=== PATIENT | male | born 1995 | race Caucasian/White ===

== ENCOUNTER 2018-03-15 09:12 | Inpatient (IN) | payer MEDICAID ==
[~2018-03-15] VITALS: Ht 167.6 cm; Wt 71.2 kg
[2018-03-15 09:19] VITALS: BP 125/73
--- NOTE | 2018-03-15 09:23 | NUR ---
PT AMBULATES TO BED 9
--- NOTE | 2018-03-15 09:30 | NUR ---
PT COMES TO ED C/O ABD PAIN RADIATING FROM LOWER Q TO UPPER Q. DENIES N/V/D. PT WITH H/O COLITIS. ABD IS SOFT AND NONTENDER, NO DISTENTION. NAD NOTED/STATED OTHERWISE
--- NOTE | 2018-03-15 09:41 | NUR ---
Dr. Gabriel evaluating patient at bedside.
[2018-03-15] MEDS ORDERED: DICYCLOMINE HCL LIQUID 20 MG, ALUMINUM HYD/MAG/SIMETHICONE 30 ML, LIDOCAINE VISCOUS 2% ... PO ONE ×3 (10:00)
[2018-03-15] MEDS ORDERED: ONDANSETRON 4 MG ODT PO ONE (10:00)
[2018-03-15 10:16] LABS: BASOPHILS # (AUTO) 0.1 K/uL (0.00-0.22); BASOPHILS % (AUTO) 0.3 % (0.0-2.0); HEMATOCRIT 41.5 % (36-52); HEMOGLOBIN 13.9 g/dL (12.0-18.0); LYMPHOCYTES # (AUTO) 1.3 K/uL (2.0-11.5); LYMPHOCYTES % (AUTO) 7.9 % (20.5-51.1); MEAN CORPUSCULAR HEMOGLOBIN 31 pg (27-31); MEAN CORPUSCULAR HGB CONC 34 g/dL (33-37); MEAN CORPUSCULAR VOLUME 91.7 fL (80-94); MONOCYTES # (AUTO) 0.7 K/uL (0.8-1.0); MONOCYTES % (AUTO) 4.1 % (1.7-9.3); NEUTROPHILS # (AUTO) 14.2 K/uL (1.8-7.7); NEUTROPHILS % (AUTO) 87.7 % (42.2-75.2); PLATELET COUNT (AUTO) 241 K/uL (140-450); RED BLOOD CELL COUNT(AUTO) 4.53 MIL/uL (4.20-6.10); WHITE BLOOD COUNT (AUTO) 16.2 K/uL (4.8-10.8)
[2018-03-15 10:32] LABS: CARBON DIOXIDE 28.2 mmol/L (21-32); POTASSIUM 4.2 mmol/L (3.5-5.1)
[2018-03-15 10:36] LABS: TOTAL BILIRUBIN 0.6 mg/dL (0.0-1.0)
[2018-03-15] MEDS ORDERED: POTASSIUM CHL 20 MEQ/D5-1/2NS 1,000 ML IV ONE (11:50)
[2018-03-15] MEDS ORDERED: PIPERACILLIN/TAZOBACTAM 3.375 GM in DEXTROSE 5% 50 ML IV ONE (11:50)
[2018-03-15] MEDS ORDERED: NACL 0.9% 1,000 ML IV SCH (11:56)
[2018-03-15] MEDS ORDERED: PIPERACILLIN/TAZOBACTAM 3.375 GM VIAL IV ONE (11:56)
[2018-03-15] MEDS ORDERED: ONDANSETRON 4 MG/2 ML VIAL IM/IVP PRN (12:00)
[2018-03-15] MEDS ORDERED: ACETAMINOPHEN 325 MG TAB PO PRN (12:00)
[2018-03-15] MEDS ORDERED: DOCUSATE SODIUM 100 MG GELCAP PO PRN (12:00)
--- NOTE | 2018-03-15 12:10 | NUR ---
Patient appears to be resting comfortably in bed reports pain level decreased to 2/10. Vital Signs within normal limits. Respirations even and unlabored.
--- NOTE | 2018-03-15 12:40 | NUR ---
PATIENT BROUGHT TO UNIT VIA GURNEY FROM THE ER. REPORT RECEIVED AT BEDSIDE FROM LEIGHANN RHODES. PATIENT IS AMBULATORY. HAS NO SIGNS AND SYMPTOMS OF ACUTE DISTRESS NOTED AT THIS TIME. CURRENTLY EXPERIENCING SOME PAIN IN THE RIGHT LOWER QUADRANT. HAS IV TO THE RIGHT AC 20G, ON KCL AT THIS TIME. ORIENTED PATIENT TO THE ROOM AND EXPLAINED THE CALL LIGHT. PATIENT VERBALIZED UNDERSTANDING. BED IN LOWEST POSITION, SIDE RAILS UP X2, CALL LIGHT WITHIN REACH. WILL CONTINUE TO MONITOR.
[2018-03-15 12:43] LABS: PROTHROMBIN TIME 10.3 secs (10.8-13.4)
--- NOTE | 2018-03-15 12:43 | NUR ---
Patient will be admitted to care of [facility]. Admited to [facility]. Will go to room 106A. Belongings list completed. Report to CHAMP LAWTON.
[2018-03-15] MEDS ORDERED: KETOROLAC 30 MG/ML VIAL IM PRN (13:30)
[2018-03-15] MEDS ORDERED: KETOROLAC 30 MG/ML VIAL IVP PRN (14:00)
[2018-03-15 14:34] LABS: CHOL/HDL RATIO 2.3 (1-4.5); FREE T4 (FREE THYROXINE) 0.95 ng/dL (0.76-1.46); MAGNESIUM 2.1 mg/dL (1.8-2.4); PHOSPHORUS 2.6 mg/dL (2.5-4.9); THYROID STIMULATING HORMONE 0.63 uIU/mL (0.34-3.74)
[2018-03-15 14:34] LABS: BARBITURATE, URINE NEG. ng/ml (NEG <=200); BENZODIAZEPINE, URINE NEG. ng/mL (NEG <=200); CANNABINOID, URINE POS. ng/mL (NEG <=50); COCAINE, URINE NEG. ng/mL (NEG <=300); OPIATE, URINE NEG. ng/mL (NEG <=2000); PHENCYCLIDINE SCREEN,URINE NEG. ng/mL (NEG <=25)
--- NOTE | 2018-03-15 14:50 | NUR ---
CONSENT FOR SURGERY IS SIGNED.
[2018-03-15 16:00] VITALS: BP 107/56
--- NOTE | 2018-03-15 16:45 | NUR ---
PATIENT TAKEN TO SURGERY
[2018-03-15] MEDS ORDERED: MIDAZOLAM 2 MG/2 ML VIAL ONE (16:57)
[2018-03-15] MEDS ORDERED: MEPERIDINE 50 MG/ML SYR ONE (16:57)
[2018-03-15] MEDS ORDERED: fentaNYL 0.05 MG/ML VIAL ONE (16:57)
[2018-03-15] MEDS ORDERED: BUPIVACAINE-MPF 0.25% 30 ML VIAL INJ ONE (17:03)
[2018-03-15] MEDS ORDERED: SUCCINYLCHOLINE CHLORIDE 200 MG/10 ML VIAL IVP ONE (17:05)
[2018-03-15] MEDS ORDERED: DEXAMETHASONE 4 MG/ML VIAL ONE (17:05)
[2018-03-15] MEDS ORDERED: SEVOFLURANE 250 ML BTL INH ONE (17:05)
[2018-03-15] MEDS ORDERED: ONDANSETRON 4 MG/2 ML VIAL ONE (17:05)
[2018-03-15] MEDS ORDERED: ROCURONIUM 50 MG/5 ML VIAL IV ONE (17:05)
[2018-03-15] MEDS ORDERED: PROPOFOL 200 MG/20 ML VIAL IV ONE (17:05)
[2018-03-15] MEDS: DEXT 5% / NACL 0.45% 1,000 ML IV SCH (17:20)
[2018-03-15] MEDS ORDERED: LACTATED RINGERS 1,000 ML IV SCH (17:39)
[2018-03-15] MEDS ORDERED: ONDANSETRON 4 MG/2 ML VIAL IVP PRN (17:40)
[2018-03-15] MEDS ORDERED: HYDROmorphone 1 MG/ML AMP IVP PRN (17:40)
[2018-03-15] MEDS ORDERED: MEPERIDINE 25 MG/ML SYR IVP PRN (17:40)
[2018-03-15] MEDS ORDERED: diphenhydrAMINE 50 MG/ML VIAL IVP PRN (17:40)
[2018-03-15] MEDS ORDERED: MORPHINE SULFATE 4 MG/ML SYR IVP PRN (18:25)
--- NOTE | 2018-03-15 19:29 | NUR ---
ENDORSED PATIENT TO RESEARCH GROUP DIRECTOR RN FOR CONTINUITY OF CARE. PATIENT IN STABLE CONDITION.
--- NOTE | 2018-03-15 19:30 | NUR ---
RECEIVED PATIENT AWAKE LYING IN BED WITH FAMILY MEMBERS. CALL LIGHT WITHIN REACH. PLAN OF CARE EXPLAIN. WILL CONTINUE TO MONITOR.
[2018-03-15 21:15] LABS: APPEARANCE,URINE HAZY (CLEAR); BILIRUBIN,URINE NEGATIVE (NEGATIVE); BLOOD, URINE NEGATIVE (NEGATIVE); COLOR,URINE YELLOW (YELLOW); LEUKOCYTE ESTERASE ,URINE NEGATIVE (NEGATIVE); NITRITE, URINE NEGATIVE (NEGATIVE); PH,URINE >=9.0 (5.0-9.0); UGLUCOSE NEGATIVE (NEGATIVE)
--- NOTE | 2018-03-15 21:15 | NUR ---
SEEN PATIENT ASLEEP IN BED BUT EASILY AROUSABLE. CALL LIGHT WITHIN REACH. NO S/S OF DISTRESS NOTED. WILL CONTINUE TO MONITOR.
[2018-03-15 21:26] LABS: RBC,URINE 0-5 (RARE) /HPF (0-5); WBC,URINE 0-5 (RARE) /HPF (0-5)
[2018-03-15 21:28] LABS: TRIPLE PHOSPHATE CRYSTAL,UR 0-10 /HPF (None Seen)
[2018-03-15 22:09] VITALS: BP 117/60
--- NOTE | 2018-03-16 00:21 | NUR ---
RECHECK PATIENT LYING IN BED ASLEEP IN COMFORTABLE POSITION. CALL LIGHT WITHIN REACH. WILL CONTINUE TO MONITOR.
[2018-03-16] MEDS: PIPER/TAZO 3.375GM/D5W PREMIX 50 ML IV SCH ×5 (01:30→23:37)
[2018-03-16] MEDS ORDERED: PIPERACILLIN/TAZOBACTAM 3.375 GM VIAL IV ONE (01:53)
[2018-03-16] MEDS: HYDROcodone/APAP 7.5/325 MG 1 TAB PO PRN ×4 (02:05→18:06)
--- NOTE | 2018-03-16 03:02 | NUR ---
SEEN PATIENT AWAKE WATCHING TV . ASSISTING PATIENT TO USE THE URINAL. POSITION THE PATIENT IN COMFORTABLE POSITION AND ALL NEEDS ATTENDED. WILL CONTINUE TO MONITOR.
[2018-03-16] MEDS: DEXT 5% / NACL 0.45% 1,000 ML IV SCH ×2 (04:25→14:25)
[2018-03-16 06:05] LABS: BASOPHILS % (AUTO) 0.1 % (0.0-2.0); HEMATOCRIT 38.5 % (36-52); HEMOGLOBIN 13.2 g/dL (12.0-18.0); LYMPHOCYTES % (AUTO) 6.2 % (20.5-51.1); MEAN CORPUSCULAR HEMOGLOBIN 31 pg (27-31); MEAN CORPUSCULAR HGB CONC 34 g/dL (33-37); MEAN CORPUSCULAR VOLUME 91.1 fL (80-94); MONOCYTES # (AUTO) 0.8 K/uL (0.8-1.0); MONOCYTES % (AUTO) 4.8 % (1.7-9.3); NEUTROPHILS # (AUTO) 14.6 K/uL (1.8-7.7); NEUTROPHILS % (AUTO) 88.9 % (42.2-75.2); PLATELET COUNT (AUTO) 240 K/uL (140-450); RED BLOOD CELL COUNT(AUTO) 4.23 MIL/uL (4.20-6.10); RED CELL DISTRIBUTION WIDTH 13.9 % (11.6-13.7); WHITE BLOOD COUNT (AUTO) 16.4 K/uL (4.8-10.8)
[2018-03-16 06:09] VITALS: BP 118/57
[2018-03-16 06:43] LABS: ANION GAP 14.7 (8-16); CARBON DIOXIDE 24.4 mmol/L (21-32); POTASSIUM 4.1 mmol/L (3.5-5.1)
--- NOTE | 2018-03-16 07:16 | NUR ---
ENDORSED PATIENT TO AM SHIFT FOR CONTINUITY OF CARE. PATIENT IN STABLE CONDITION.
--- NOTE | 2018-03-16 07:30 | NUR ---
REPORT RECEIVED FROM ARMEN LAWTON. PT IN STABLE CONDITION NOT IN ACUTE DISTRESS. BED LOCKED IN LOW POSITION. CALL [place] WITHIN REACH. WILL CONTINUE TO MONITOR.
[2018-03-16 08:00] VITALS: BP 120/75
--- NOTE | 2018-03-16 08:33 | NUR ---
ZOSYN GIVEN AT 0159 BY ARMEN FERNANDEZ RN. 0100 DOSE NON ADMIN CHARTED.
[2018-03-16] MEDS ORDERED: PIPER/TAZO 3.375GM/D5W PREMIX 50 ML IV SCH ×2 (08:45)
--- NOTE | 2018-03-16 09:06 | NUR ---
PATIENT HAS BEEN SCREENED AND CATEGORIZED LOW NUTRITION RISK. PATIENT WILL BE SEEN WITHIN 7 DAYS OF ADMISSION. 03/22/[address]
--- NOTE | 2018-03-16 10:20 | NUR ---
PT UP OUT OF BED WITH ASSIST, AMBULATED SLOWLY WITH STEADY GAIT GROUP HOME DOWN THE [place] AND RETURNED, BECKIE WELL, ENCOURAGED TO GET UP TO AMBULATE OFTEN, GIRLFRIEND AT BEDSIDE, WILL CONTINUE TO MONITOR.
--- NOTE | 2018-03-16 13:05 | NUR ---
CHECKED ON PT. PT NOT IN ANY ACUTE DISTRESS AND IN STABLE CONDITION. MOM AT BEDSIDE. CALL [place] WITHIN REACH. WILL CONTINUE TO MONITOR.
[2018-03-16 16:00] VITALS: BP 142/85
--- NOTE | 2018-03-16 18:46 | NUR ---
PT DRESSING CHANGED. BETADINE TO DISINFECT SITE. 2 SPLIT GAUZES USED TO PROTECT INCISION SITE. PT WAS IN PAIN BUT TOLERATED WELL. PT NOT IN ANY ACUTE DISTRESS AND VS ARE STABLE. WILL CONTINUE TO MONITOR. Addendum: 03/16/18 at 1852 by Dev Valderrama RN DRESSING CHANGE WAS COMPLETE AT 1730
--- NOTE | 2018-03-16 19:44 | NUR ---
PT ENDORSED TO NIGHT RN. PT IN STABLE CONDITION.
--- NOTE | 2018-03-16 19:45 | NUR ---
PATIENT REPORT RECEIVED FROM MORNING NURSE AT BEDSIDE. PATIENT IS AWAKE, ALERT AND ORIENTED. NO SIGNS AND SYMPTOMS OF DISTRESS NOTED. PATIENT COMPLAINING OF ABDOMINAL PAIN. WILL MEDICATE ORDERED. IV SITE NOTED IN RIGHT ARM, IVF INFUSING WELL. ABDOMINAL DRESSING DRY AND INTACT. MINIMAL DRAINAGE NOTED IN NASIM DRAIN. PLAN OF CARE DISCUSSED WITH PATIENT. PATIENT VERBALIZED UNDERSTANDING. WILL CONTINUE TO MONITOR. BED IN LOWEST POSITION, SIDE RAILS UP AND CALL LIGHT WITHIN REACH. WILL CONTINUE TO MONITOR.
[2018-03-16] MEDS ORDERED: HYDROmorphone 1 MG/ML AMP IVP PRN (21:30)
[2018-03-17] VITALS: BP 123/74
[2018-03-17] MEDS: DEXT 5% / NACL 0.45% 1,000 ML IV SCH ×2 (00:25→10:25)
[2018-03-17] MEDS ORDERED: DICYCLOMINE HCL LIQUID 20 MG, ALUMINUM HYD/MAG/SIMETHICONE 30 ML, LIDOCAINE VISCOUS 2% ... PO ONE ×3 (00:50)
--- NOTE | 2018-03-17 01:00 | NUR ---
PATIENT YELLING IN PAIN. PATIENT FEELS 10/10 ABDOMINAL PAIN AND HEARTBURN. VITAL SIGNS CHECKED. PULSE RATE ELEVATED, OTHER VITAL SIGNS WITHIN NORMAL LIMITS. TEMPERATURE 98.7. SURGICAL DRESSING DRY AND INTACT, MINIMAL DRAINAGE NOTED IN NASIM DRAIN. NOTIFIED DR. FERNANDEZ. ORDERS RECEIVED.
--- NOTE | 2018-03-17 01:10 | NUR ---
GI COCKTAIL GIVEN ORDERED. UNABLE TO SCAN MEDS.
[2018-03-17] MEDS: HYDROmorphone 1 MG/ML AMP IVP PRN ×2 (01:17→05:23)
--- NOTE | 2018-03-17 01:20 | NUR ---
TRANSPORTATION DESIGN ENGINEER CAME TO DRAW CBC/CMP
[2018-03-17 01:23] LABS: BASOPHILS # (AUTO) 0.1 K/uL (0.00-0.22); BASOPHILS % (AUTO) 0.4 % (0.0-2.0); EOSINOPHILS % (AUTO) 0.1 % (0.0-4.0); HEMATOCRIT 38.7 % (36-52); HEMOGLOBIN 12.8 g/dL (12.0-18.0); LYMPHOCYTES # (AUTO) 1.2 K/uL (2.0-11.5); LYMPHOCYTES % (AUTO) 8.1 % (20.5-51.1); MEAN CORPUSCULAR HEMOGLOBIN 31 pg (27-31); MEAN CORPUSCULAR HGB CONC 33 g/dL (33-37); MEAN CORPUSCULAR VOLUME 92.1 fL (80-94); MONOCYTES # (AUTO) 0.7 K/uL (0.8-1.0); MONOCYTES % (AUTO) 4.6 % (1.7-9.3); NEUTROPHILS # (AUTO) 12.8 K/uL (1.8-7.7); NEUTROPHILS % (AUTO) 86.8 % (42.2-75.2); PLATELET COUNT (AUTO) 251 K/uL (140-450); RED CELL DISTRIBUTION WIDTH 13.7 % (11.6-13.7); WHITE BLOOD COUNT (AUTO) 14.7 K/uL (4.8-10.8)
--- NOTE | 2018-03-17 01:30 | NUR ---
PATIENT PICKED UP BY RADIOLOGY FOR STAT CT ABDOMEN/PELVIS
[2018-03-17 01:33] LABS: ANION GAP 12.8 (8-16); CREATININE 1.1 mg/dL (0.7-1.3); POTASSIUM 3.8 mmol/L (3.5-5.1)
[2018-03-17 01:39] LABS: ALBUMIN 3.2 g/dL (3.4-5.0); TOTAL BILIRUBIN 0.8 mg/dL (0.0-1.0)
[2018-03-17] MEDS: ONDANSETRON 4 MG/2 ML VIAL IVP PRN ×2 (02:05→10:32)
--- NOTE | 2018-03-17 02:05 | NUR ---
PATIENT BACK FROM CT. TECH STATED THAT PATIENT VOMITED TWICE. WILL MEDICATE ORDERED FOR N/V
--- NOTE | 2018-03-17 02:18 | NUR ---
PATIENT CURRENTLY ASLEEP. NO SIGNS AND SYMPTOMS OF DISTRESS NOTED. BREATHING EVEN AND UNLABORED. WILL CONTINUE TO MONITOR.
--- NOTE | 2018-03-17 04:30 | NUR ---
ENCOURAGED PATIENT TO USE INCENTIVE SPIROMETER SEVERAL TIMES. EDUCATED PATIENT ON IMPORTANCE OF INCENTIVE SPIROMETER. PATIENT REFUSED DUE TO PAIN, HE SAID "LATER". DR. FERNANDEZ AWARE AND RT AWARE.
[2018-03-17] MEDS: PIPER/TAZO 3.375GM/D5W PREMIX 50 ML IV SCH ×3 (05:00→17:35)
[2018-03-17 06:19] LABS: T4 (THYROXINE) 6.3 ug/dL (4.5-12.0)
[2018-03-17 06:59] LABS: BASOPHILS % (AUTO) 0.1 % (0.0-2.0); HEMATOCRIT 37.9 % (36-52); HEMOGLOBIN 12.6 g/dL (12.0-18.0); LYMPHOCYTES # (AUTO) 1.5 K/uL (2.0-11.5); LYMPHOCYTES % (AUTO) 8.7 % (20.5-51.1); MEAN CORPUSCULAR HEMOGLOBIN 31 pg (27-31); MEAN CORPUSCULAR HGB CONC 33 g/dL (33-37); MEAN CORPUSCULAR VOLUME 91.7 fL (80-94); MONOCYTES # (AUTO) 0.8 K/uL (0.8-1.0); MONOCYTES % (AUTO) 4.6 % (1.7-9.3); NEUTROPHILS # (AUTO) 14.4 K/uL (1.8-7.7); NEUTROPHILS % (AUTO) 86.6 % (42.2-75.2); PLATELET COUNT (AUTO) 264 K/uL (140-450); RED BLOOD CELL COUNT(AUTO) 4.13 MIL/uL (4.20-6.10); WHITE BLOOD COUNT (AUTO) 16.7 K/uL (4.8-10.8)
[2018-03-17 07:10] LABS: ANION GAP 12.3 (8-16); CARBON DIOXIDE 28.4 mmol/L (21-32); POTASSIUM 3.7 mmol/L (3.5-5.1)
[2018-03-17 07:15] LABS: PHOSPHORUS 2.9 mg/dL (2.5-4.9)
--- NOTE | 2018-03-17 07:15 | NUR ---
PATIENT REPORT GIVEN TO MORNING NURSE AT BEDSIDE. PATIENT IS IN STABLE CONDITION
[2018-03-17 08:00] VITALS: BP 131/79
--- NOTE | 2018-03-17 08:00 | NUR ---
PATIENT WAS SLEEPING COMFORTABLY, EASILY AROUSABLE BY NAME. RESPIRATIONE EVEN, UNLABOR ON ROOM AIR. SKIN DRY AND WARM. DRESSING CLEAN AND DRY. IV PATENT AND INTACT. DENIED PAIN, N/V AT THIS TIME. VS IS STABLE. PLAN OF CARE WAS DISCUSSED WITH PATIENT. BED AT LOW POSITION, SIDE RAILS UP. CALL LIGHT WITHIN REACH
[2018-03-17] MEDS: KETOROLAC 30 MG/ML VIAL IM PRN ×2 (09:24→16:31)
--- NOTE | 2018-03-17 09:30 | NUR ---
PATIENT AWAKE, ALERT. COMPLAINED OF INCISIONAL PAIN. MED WAS GIVEN PER ORDER. ENCOURAGED PATIENT TO USE IS QHOUR, AND AMBULATE TOLERATED. PATIENT VERBALIZED UNDERSTANDING. FAMILY AT BEDSIDE. CALL LIGHT WITHIN REACH
--- NOTE | 2018-03-17 10:30 | NUR ---
PATIENT COMPLAINED OF NAUSEA UPON GETTING UP. MED WAS GIVEN PER ORDER. FAMILY AT BEDSIDE. CALL LIGHT WITHIN REACH
--- NOTE | 2018-03-17 11:34 | NUR ---
PATIENT AWAKE, ALERT. DENIED PAIN, N/V AT THIS TIME. FAMILY AT BEDSIDE. NO DISTRESS NOTED. PATIENT WAS ENCOURAGED TO AMBULATE AROUND THE HALLWAY AFTER LUNCH. PATIENT VERBALIZED UNDERSTANDING
[2018-03-17] MEDS ORDERED: MECLIZINE 25 MG TAB PO PRN (12:15)
[2018-03-17] MEDS ORDERED: PROMETHAZINE 25 MG/ML VIAL IM PRN (12:20)
--- NOTE | 2018-03-17 15:15 | NUR ---
PATIENT IS SLEEPING COMFORTABLY. RESPIRATION EVEN, UNLABOR ON ROOM AIR. VS IS STABLE. NO DISTRESS NOTED AT THIS TIME
[2018-03-17 16:00] VITALS: BP 113/73
--- NOTE | 2018-03-17 16:36 | NUR ---
PATIENT COMPLAINED OF ABDOMEN PAIN 05/19. PATIENT WAS TALKING AND LAUGHING WITH FAMILY. NO DISTRESS NOTED. WILL MEDICATE PER ORDER
[2018-03-17] MEDS ORDERED: PROMETHAZINE 25 MG/ML VIAL IVP PRN (17:10)
[2018-03-17] MEDS: POTASSIUM CHL 20 MEQ/D5-1/2NS 1,000 ML IV SCH (18:09)
--- NOTE | 2018-03-17 19:19 | NUR ---
ENDORSEMENT GIVEN TO THE HOUSE DECORATOR NURSE. PATIENT IS STABLE AT THIS TIME.
--- NOTE | 2018-03-17 19:20 | NUR ---
PATIENT REPORT RECEIVED FROM MORNING NURSE AT BEDSIDE. PATIENT IS ASLEEP, BUT EASY TO AWAKEN. PATIENT'S GIRLFRIEND IS AT BEDSIDE. NO SIGNS AND SYMPTOMS OF DISTRESS NOTED. IV SITE NOTED ON RIGHT AC, IVF INFUSING WELL. BED IN LOWEST POSITION, SIDE RAILS UP AND CALL LIGHT WITHIN REACH. WILL CONTINUE TO MONITOR.
--- NOTE | 2018-03-17 20:30 | NUR ---
PATIENT AWAKE. VITAL SIGNS TAKEN. EDUCATED PATIENT AND GIRLFRIEND OF THE IMPORTANCE OF GETTING UP AND WALKING POST-OP. AND TO TRY AND AMBULATE TO THE RESTROOM INSTEAD OF USING URINAL. PATIENT VERBALIZED UNDERSTANDING.
--- NOTE | 2018-03-17 20:38 | NUR ---
STANDBY ASSISTED PATIENT WITH AMBULATING TO THE RESTROOM. PATIENT AMBULATED TO THE RESTROOM AND VOIDED. NO SIGNS AND SYMPTOMS OF DISTRESS NOTED. ASSISTED PATIENT BACK TO BED. NO COMPLAINTS OF DIZZINESS OR SOB AT THIS TIME.
[2018-03-17] MEDS ORDERED: KETOROLAC 30 MG/ML VIAL IVP PRN (22:20)
[2018-03-17] MEDS ORDERED: PIPERACILLIN/TAZOBACTAM 4.5 GM VIAL IV ONE ×2 (23:55→23:56)
[2018-03-18] VITALS: BP 115/69
--- NOTE | 2018-03-18 | NUR ---
CHECKED ON PATIENT. PATIENT IS ASLEEP. NO SIGNS AND SYMPTOMS OF DISTRESS NOTED. BREATHING EVEN AND UNLABORED. WILL CONTINUE TO MONITOR.
[2018-03-18] MEDS: PIPERACILLIN/TAZOBACTAM 4.5 GM in DEXTROSE 5% 100 ML IV SCH ×4 (00:14→18:35)
[2018-03-18] MEDS: POTASSIUM CHL 20 MEQ/D5-1/2NS 1,000 ML IV SCH ×3 (03:25→23:25)
--- NOTE | 2018-03-18 03:31 | NUR ---
CHECKED ON PATIENT. PATIENT IS ASLEEP. NO SIGNS AND SYMPTOMS OF DISTRESS NOTED. BREATHING EVEN AND UNLABORED. WILL CONTINUE TO MONITOR.
[2018-03-18 06:40] LABS: BASOPHILS % (AUTO) 0.1 % (0.0-2.0); EOSINOPHILS # (AUTO) 0.1 K/uL (0-0.4); EOSINOPHILS % (AUTO) 0.6 % (0.0-4.0); HEMATOCRIT 37.7 % (36-52); HEMOGLOBIN 12.6 g/dL (12.0-18.0); LYMPHOCYTES # (AUTO) 1.6 K/uL (2.0-11.5); MEAN CORPUSCULAR HEMOGLOBIN 31 pg (27-31); MEAN CORPUSCULAR HGB CONC 33 g/dL (33-37); MEAN CORPUSCULAR VOLUME 91.5 fL (80-94); MONOCYTES # (AUTO) 0.7 K/uL (0.8-1.0); NEUTROPHILS % (AUTO) 80.3 % (42.2-75.2); PLATELET COUNT (AUTO) 273 K/uL (140-450); RED BLOOD CELL COUNT(AUTO) 4.12 MIL/uL (4.20-6.10); RED CELL DISTRIBUTION WIDTH 13.8 % (11.6-13.7); WHITE BLOOD COUNT (AUTO) 12.5 K/uL (4.8-10.8)
--- NOTE | 2018-03-18 07:20 | NUR ---
PATIENT REPORT GIVEN TO MORNING NURSE AT BEDSIDE. PATIENT IS IN STABLE CONDITION
[2018-03-18 08:00] VITALS: BP 122/69
--- NOTE | 2018-03-18 08:00 | NUR ---
INITIAL ASSESSMENT PERFORMED. PATIENT ALERT AND ABLE TO VERBALIZE NEEDS. NO ACUTE DISTRESS NOTED. NO SOB. RESP EVEN AND UNLABORED. LUNG SOUNDS CLEAR BOWEL SOUNDS ACTIVE X 4 QUADS. PATIENT C/O 2/10 ABD PAIN BUT TOLERABLE. PATIENT ASKING IF HE WOULD BE DISCHARGED TODAY. INFORMED PATIENT THATDR WOULD BE DOING ROUNDS SHORTLY TO FURTHER DISCUSS. PATIENT STATED HE HAD BM THIS AM AND HAS BEEN PASSING GAS. ENCOURAGED PATIENT TO AMBULATE. PATIENT WITH D51/2NS WITH 20MEQ OF POTASSIUM RUNNING AT 100ML/HR. PATIENT TOLERATING WELL. IV SITE TO RAC 20G. VSS. PATIENT WITH NASIM DRAIN BELOW UMBILICUS. WITH MINIMAL DRANAGE NOTED . SANGUINOUS COLOR. DRY DRESSING INTACT TO NASIM SITE.. PATIENT TOLERATING REGULAR DIET WELL.PATIENT ABLE TO AMBULATE TO BATHROOM WITHOUT DIFFICULTIES. DISCUSSED PLAN OF CARE DISCUSSED AT BEDSIDE. UPDATED BOARD. CALL LIGHT WITHIN REACH. WILL CONT TO MONITOR.
--- NOTE | 2018-03-18 12:45 | NUR ---
PT SLEEPING QUIETLY IN NAD, RESP EVEN UNLABORED, SKIN WARM DRY COLRO WNL, ANTIBIOTIC STARTED SCHEDULED, IVSITE CLEAR, WILL CONTINUE TO [place].
--- NOTE | 2018-03-18 15:10 | NUR ---
PT UP AMBULATING AROUND THE HALLWAY WITH STEADY GAIT, SMILING, DENIES PAIN OR DISCOMFORT.
[2018-03-18 16:00] VITALS: BP 109/58
--- NOTE | 2018-03-18 18:00 | NUR ---
DR CHATMAN AT BEDSIDE FOR EVAL, NASIM DRAIN REMOVED, PT BECKIE POORLY. ONLY 3ML BLOODY DRAINAGE DRAINED
--- NOTE | 2018-03-18 18:36 | NUR ---
ZOSYN STARTED SCHEDULED, IV SITE WNL, PT RESTING QUIETLY IN NAD NOW, STATES PAIN IS BETTER. WILL CONTINUE TO MONITOR
--- NOTE | 2018-03-18 19:25 | NUR ---
REPORT GIVEN TO ALISON LAWTON, PT IN STABLE CONDITION.
--- NOTE | 2018-03-18 19:30 | NUR ---
RECEIVED REPORT FROM DAY NURSE NILDA RN. PATIENT ALERT AND ABLE TO VERBALIZE NEEDS. NO ACUTE DISTRESS NOTED. NO SOB. RESP EVEN AND UNLABORED. LUNG SOUNDS CLEAR BOWEL SOUNDS ACTIVE X 4 QUADS. PATIENT WITH D51/2NS WITH 20MEQ OF POTASSIUM RUNNING AT 100ML/HR. PATIENT TOLERATING WELL. IV SITE TO RAC 20G. VSS. PATIENT TOLERATING REGULAR DIET WELL.PATIENT ABLE TO AMBULATE TO BATHROOM WITHOUT DIFFICULTIES. INITIAL ASSESSMENT COMPLETED, DISCUSSED PLAN OF CARE DISCUSSED AT BEDSIDE, PT VERBALIZED UNDERSTANDING.UPDATED BOARD. CALL LIGHT WITHIN REACH. WILL CONT TO MONITOR.
--- NOTE | 2018-03-18 22:30 | NUR ---
PT RESTING COMFORTABLY IN BED. NO S/S OF DISTRESS NOTED
[2018-03-19] VITALS: BP 106/62
[2018-03-19] MEDS: PIPERACILLIN/TAZOBACTAM 4.5 GM in DEXTROSE 5% 100 ML IV SCH ×3 (00:23→11:30)
--- NOTE | 2018-03-19 03:30 | NUR ---
PT RESTING COMFORTABLY IN BED. NO S/S OF DISTRESS NOTED
[2018-03-19 06:53] LABS: BASOPHILS % (AUTO) 0.2 % (0.0-2.0); EOSINOPHILS # (AUTO) 0.1 K/uL (0-0.4); HEMATOCRIT 35.6 % (36-52); HEMOGLOBIN 12.1 g/dL (12.0-18.0); LYMPHOCYTES # (AUTO) 1.7 K/uL (2.0-11.5); LYMPHOCYTES % (AUTO) 12.9 % (20.5-51.1); MEAN CORPUSCULAR HEMOGLOBIN 31 pg (27-31); MEAN CORPUSCULAR HGB CONC 34 g/dL (33-37); MEAN CORPUSCULAR VOLUME 91.6 fL (80-94); MONOCYTES # (AUTO) 0.8 K/uL (0.8-1.0); MONOCYTES % (AUTO) 6.6 % (1.7-9.3); NEUTROPHILS # (AUTO) 10.2 K/uL (1.8-7.7); NEUTROPHILS % (AUTO) 79.3 % (42.2-75.2); PLATELET COUNT (AUTO) 285 K/uL (140-450); RED BLOOD CELL COUNT(AUTO) 3.89 MIL/uL (4.20-6.10); RED CELL DISTRIBUTION WIDTH 13.6 % (11.6-13.7); WHITE BLOOD COUNT (AUTO) 12.9 K/uL (4.8-10.8)
--- NOTE | 2018-03-19 07:18 | NUR ---
ASSUMED CONTINUITY OF CARE NO SIGNS AND SYMPTOMS OF ACUTE DISTRESS NOTED. INITIAL ASSESSMENT DONE. KEEP COMFORTABLE ON BED. EXPLAINED DIAGNOSIS, PLAN OF CARE, PAIN MANAGEMENT TEACHING, INCISION CARE, USE OF CALL LIGHT/BED/TV/BATHROOM. VERBALIZED UNDERSTANDING. CALL LIGHT WITHIN REACH.
--- NOTE | 2018-03-19 07:18 | NUR ---
REPORT GIVEN TO DAY NURSE ONEAL BENITO FOR CONTINUITY OF CARE, PT IN STABLE CONDITION.
[2018-03-19 08:00] VITALS: BP 106/58
--- NOTE | 2018-03-19 08:00 | NUR ---
Patient's Plan of Care was discussed and reviewed with METAL FRAMER: ONEAL
[2018-03-19] MEDS: HYDROcodone/APAP 7.5/325 MG 1 TAB PO PRN (10:14)
[2018-03-19 12:00] VITALS: BP 110/57
--- NOTE | 2018-03-19 12:00 | NUR ---
VITALS SIGNS STABLE. NO C/O PAIN. WILL MONITOR.
--- NOTE | 2018-03-19 12:10 | NUR ---
DR. LEON CAME AND USED [employer] WITH PRINTING AND STAMPING SUPERVISOR NUMBER [id number] REGARDING PT. D/C INSTRUCTIONS AND TEACHING.
[2018-03-19] MEDS ORDERED: ACET-9529 PO (14:15)
[2018-03-19] MEDS ORDERED: METR250T2 PO (14:15)
[2018-03-19] MEDS ORDERED: LEVO750T2 PO (14:15)
[2018-03-19] MEDS ORDERED: ASCO1CAP75 PO (14:15)
--- NOTE | 2018-03-19 16:00 | NUR ---
D/C HOME ACCOMPANIED BY PT. GIRLFRIEND -KIRK. PT. AMBULATORY AND REFUSED WHEELCHAIR FOR D/C. AWAKE, ALERT, AND ORIENTED X4. SPEECH CLEAR. NO C/O PAIN. NO SOB, NOTED. IN STABLE CONDITION. INFORMED CHARGE NURSE ROSARIO GREEN.
== END 2018-03-19 16:00 | disposition home or self-care (01) | DRG 225 ==
LOC: MED 09:12 → MTU 12:02
PROVIDERS: ADMIT Family Medicine; ATTEND Family Medicine
PROC: 0W9H40Z Drainage of Retroperitoneum with Drainage Device, Percutaneous Endoscopic Approach (ICD-10-PCS; 2018-03-15)
PROC: 0DTJ4ZZ Resection of Appendix, Percutaneous Endoscopic Approach (ICD-10-PCS; principal; 2018-03-15 17:00)
DX: K35.80 Unspecified acute appendicitis (principal); N17.0 Acute kidney failure with tubular necrosis; K68.19 Other retroperitoneal abscess; E44.0 Moderate protein-calorie malnutrition; K56.7 Ileus, unspecified; E78.5 Hyperlipidemia, unspecified; F12.10 Cannabis abuse, uncomplicated; B96.5 Pseudomonas (aeruginosa) (mallei) (pseudomallei) as the cause of diseases classified elsewhere; B96.20 Unspecified Escherichia coli [E. coli] as the cause of diseases classified elsewhere; Z87.891 Personal history of nicotine dependence; Z68.25 Body mass index [BMI] 25.0-25.9, adult; Z80.42 Family history of malignant neoplasm of prostate; G89.18 Other acute postprocedural pain
CPT/HCPCS: 36415; 71045; 74150; 80048; 80053; 80305; 81001; 82150; 82374; 83036; 83605; 83690; 83735; 83880; 84100; 84436; 84439; 84443; 84479; 84484; 85025; 85610; 85730; 86886; 86900; 86901; 87040; 87070; 87075; 87081; 87086; 87186; 87205; 88304; 93005; 99285; J0330; J1100; J1170; J1200; J1885; J2175; J2250; J2270; J2405; J2543; J2550; J2704; J3010; J3490; J7030; J7060; Q0092; Q9967; S0119

== ENCOUNTER 2021-07-18 15:12 | Emergency (ER) | payer MEDICAID, OTHER ==
[~2021-07-18] VITALS: Ht 165.1 cm; Wt 77.6 kg
[~2021-07-18 15:12] MED LIST: ACET-9529 PO; ASCO1CAP75 PO; LEVO750T2 PO; METR-520 PO
[2021-07-18 16:09] VITALS: BP 110/74
[2021-07-18] MEDS ORDERED: NAPR-54 PO (16:51)
--- NOTE | 2021-07-18 17:00 | NUR ---
NO NURSING INTERVENTIONS IMPLEMENTED
[2021-07-18 17:06] VITALS: BP 110/74
== END 2021-07-18 17:06 | disposition home or self-care (01) ==
LOC: MED 15:12
DX: S60.111A Contusion of right thumb with damage to nail, initial encounter (principal); X58.XXXA Exposure to other specified factors, initial encounter; Y93.89 Activity, other specified; Y92.89 Other specified places as the place of occurrence of the external cause; Y99.8 Other external cause status
CPT/HCPCS: 99282

== ENCOUNTER 2022-01-13 18:47 | Emergency (ER) | payer OTHER ==
[~2022-01-13] VITALS: Ht 172.7 cm; Wt 71.7 kg
[~2022-01-13 18:47] MED LIST changes: +NAPR-54 PO
[2022-01-13 19:00] VITALS: BP 119/73
--- NOTE | 2022-01-13 19:17 | NUR ---
Pt report given to benigno bernal. Transfer of care at this time.
--- NOTE | 2022-01-13 19:18 | NUR ---
REPORT RECEIVED FROM LEIGHANN CASTELAN, CONTINUITY OF PT CARE AT THIS TIME.
--- NOTE | 2022-01-13 19:23 | NUR ---
hector swabbed and given to phleb
--- NOTE | 2022-01-13 19:23 | NUR ---
26 y/o male presents to ed with c/o abd pain, n/v/d, fatigue, food aversion, dizzy for 5 days. skin is pink/warm/dry. a&o x4 with even and steady gait. lungs clear bl, heart rate even and regular. pt denies dysuria, hematuria, urinary frequency or retention, or anyone sick in the household with the same symptoms. pt denies any fever, cp, sob, or cough at this time. pt states pain is 10/10 at this time. vss. patient positioned for comfort. hob elevated. bed down. ermd made aware of pt. pmh: denies nka med: peptobismol, loratidine
[2022-01-13 19:39] LABS: BASOPHILS % (AUTO) 0.3 % (0.0-2.0); EOSINOPHILS # (AUTO) 0.1 K/uL (0-0.4); EOSINOPHILS % (AUTO) 1.3 % (0.0-4.0); HEMOGLOBIN 15.2 g/dL (12.0-18.0); LYMPHOCYTES # (AUTO) 2.6 K/uL (2.0-11.5); LYMPHOCYTES % (AUTO) 31.1 % (20.5-51.1); MEAN CORPUSCULAR HEMOGLOBIN 32 pg (27-31); MEAN CORPUSCULAR HGB CONC 35 g/dL (33-37); MEAN CORPUSCULAR VOLUME 91.3 fL (80-94); MONOCYTES # (AUTO) 0.5 K/uL (0.8-1.0); MONOCYTES % (AUTO) 5.7 % (1.7-9.3); NEUTROPHILS # (AUTO) 5.1 K/uL (1.8-7.7); NEUTROPHILS % (AUTO) 61.6 % (42.2-75.2); PLATELET COUNT (AUTO) 278 K/uL (140-450); RED BLOOD CELL COUNT(AUTO) 4.82 MIL/uL (4.20-6.10); RED CELL DISTRIBUTION WIDTH 13.5 % (11.6-13.7); WHITE BLOOD COUNT (AUTO) 8.2 K/uL (4.8-10.8)
[2022-01-13] MEDS ORDERED: NACL 0.9% 1,000 ML IV ONE (19:45)
[2022-01-13] MEDS ORDERED: ONDANSETRON 4 MG/2 ML VIAL IVP ONE (19:45)
--- NOTE | 2022-01-13 19:50 | NUR ---
PT AMBVULATED TO BATHROOM. STEADY GAIT.
--- NOTE | 2022-01-13 20:00 | NUR ---
PT LAYING IN BED LOCKED IN LOWEST POSITION W X1 SIDERAIL UP. PT REPORTS MILD ABDOMINAL PAIN 2/10 MORE OF AN ACIDIC SENSATION, + NAUSEA. PT REPORTS SYMPTOMS HAVE BEEN GOING ON AND OFF FOR X2 YRS TRIGGERED W STRESS. HAS NOT YET SEEN A PCP. PT DOES NOT WANT PAIN MEDICATION, REQUESTING SOMETHING FOR THE NAUSEA. VSS. BREATHING EVEN AND UNLABORED. NAD NOTED, WILL CONTINUE TO MONITOR.
[2022-01-13 20:21] LABS: ALBUMIN 4.4 g/dL (3.4-5.0); ANION GAP 12.5 (8-16); CARBON DIOXIDE 28.2 mmol/L (21-32); CREATININE 1.1 mg/dL (0.6-1.3); POTASSIUM 3.7 mmol/L (3.5-5.1); TOTAL BILIRUBIN 0.4 mg/dL (0.0-1.0)
[2022-01-13] MEDS ORDERED: ONDA-188 SL (20:41)
--- NOTE | 2022-01-13 20:56 | NUR ---
PT DENIES ANY NAUSEA AT THIS TIME.
[2022-01-13 20:58] VITALS: BP 121/87
== END 2022-01-13 20:58 | disposition home or self-care (01) ==
LOC: MED 18:47
DX: R11.2 Nausea with vomiting, unspecified (principal); Z20.822 Contact with and (suspected) exposure to COVID-19; R19.7 Diarrhea, unspecified; R10.9 Unspecified abdominal pain
CPT/HCPCS: 36415; 80053; 81002; 83690; 85025; 87426; 96361; 96374; 99283; J2405; J7030